=== PATIENT | male | born 1960 | race Caucasian/White ===

== ENCOUNTER 2016-08-10 12:36 | Inpatient (IN) ==
[2016-08-10 14:02] LABS: BUN/Creatinine Ratio 4 (6-26); Blood Urea Nitrogen 4 mg/dL (8-26); Calcium 9.9 mg/dL (8.6-10.8); Carbon Dioxide 21 mEq/L (19-29); Chloride 102 mEq/L (98-109); Glucose 101 mg/dL (70-99); Osmolality,Calculated 281 (280-300); Sodium 137 mEq/L (136-145); eGFR For African Americans > 60 (> 60); eGFR For Non-African Americans > 60 (> 60)
[2016-08-10] MEDS ORDERED: *HR* LORazepam 2 MG/ML VIAL ONE (14:05)
[2016-08-10] MEDS ORDERED: PHENYTOIN IVPB ONE ×2 (14:42→21:45)
--- NOTE | 2016-08-10 14:46 | Emergency Department Note ---
Disposition Clinical Impression: Generalized seizure Alcohol dependence Qualifiers: Substance use status: in withdrawal Complication of substance-induced condition : with unspecified complication Qualified Code(s): F10.239 - Alcohol dependence with withdrawal, unspecified Disposition: Admitted As Inpatient Condition: Fair Time of Disposition: 15:27 Seizure HPI - General Chief Complaint: ED Seizure Stated Complaint: seizure Time Seen by Provider: 08/10/16 12:48 Source: EMS Limitations: no limitations Nursing Notes Reviewed: Yes Vital Signs Reviewed: Yes - History of Present Illness HPI Narrative: Patient is a 55-year-old male who presents to [facility] ED via EMS status post seizure. States he had a seizure while standing up and fell backwards and hit the back of his head. He did lose consciousness for a few minutes and then was postictal afterwards. Patient was awake and alert upon his arrival and able to answer my questions. Patient states he is supposed to be on Dilantin but takes it here and there. States it does not make slow with his alcohol intake so he does not take it when he drinks. Patient states he drinks more days than not. Patient does have signs of a head laceration. States his only pain at this time is in his lower back where he has chronic pain. Pt Subjective Complaint: seizure Onset (ago): [employer] Description of Episode: loss of consciousness, tonic-clonic movement, post- event confusion -: minutes(s) Witnessed: yes - by bystander Associated trauma secondary to event: Yes (head laceration) Seizure History: known seizure disorder, history of non-compliance with treatment Possible Precipitating Event: alcohol withdrawal, other (medical noncompliance) Associated symptoms: Denies: chest pain, cough, fever/chills, loss of appetite, rash, shortness of breath, weakness Treatments prior to arrival: none - Related Data Home Medications Medication Instructions Recorded Confirmed Phenytoin [Dilantin] 400 mg PO BID 02/16/15 08/10/16 Ammonium Lactate [Destini-Hydrolac] 1 appl TP BID PRN 08/10/16 08/10/16 Brimonidine 0.2% [Alphagan] 1 drop RIGHT EYE BID 08/10/16 08/10/16 Ibuprofen [Motrin] 600 mg PO TID 08/10/16 08/10/16 Multivitamin [Multi-Day Vitamins] 1 each PO DAILY 08/10/16 08/10/16 Trazodone HCl 100 mg PO HS 08/10/16 08/10/16 Allergies Allergy/AdvReac Type Severity Reaction Status Date / Time No Known Allergies Allergy Verified 02/16/15 16:03 All systems ED: reviewed and negative except as stated. Past Medical History - Past Medical History Attestation: Yes The following information was validated with the patient. Source: patient Medical history: Reports: seizures Psychiatric history: Reports: no psych history - Social History Smoking Status: Current every day smoker Alcohol use: Reports: heavy, recent Drug use: Reports: none Physical Exam - General Limitations: no limitations General appearance: alert, in no apparent distress - Head Head exam: normocephalic, normal inspection, other (1.5 inch laceration over posterior scalp) - Eye Eye exam: Present: normal appearance, PERRL, EOMI - ENT ENT exam: normal exam, normal oropharynx, mucous membranes moist - Neck Neck exam: Present: normal inspection, full ROM, trachea midline - Chest Chest inspection: Present: normal inspection, symmetric chest wall rise - Respiratory Respiratory exam: Present: normal lung sounds bilaterally - Cardiovascular Cardiovascular exam: Present: normal rhythm, tachycardia - Abdominal Exam Abdominal exam: Present: soft, Non-Tender. Absent: tenderness, distention, guarding, rebound, rigidity - Extremities Exam Extremities exam: Present: normal inspection, full ROM. Absent: tenderness, pedal edema - Back Exam Back exam: Present: normal inspection, full ROM. Absent: tenderness - Neurological Exam Neurological exam: Present: alert - Psychiatric Psychiatric exam: Present: normal affect, normal mood - Skin Skin exam: Present: warm, dry, intact, normal color Course Course Narrative: Patient seen and examined. Seizure prior to arrival with head injury and LOC. CT head and cervical spine ordered. BMP, Dilantin level, UDS, glucose levels, ETOH ordered. - Reevaluation(s) Reevaluation #1: Patient had another tonic-clonic seizure which lasted approximately 1 minute before he received Ativan. His oxygen saturation desaturated down to 65% with foaming at his mouth. This then improved back to 92%. Concern for delirium tremens versus seizure disorder. We will admit to hospitalist service for further observation and continued treatment. Time: 14:53 Reevaluation #2: I spoke with hospitalist Silke Robles who has accepted patient for admission. I also spoke with neurologist Dr. Law who will see the patient in consult tomorrow. Agrees with loading with Dilantin. He has no further recommendations at this time. Patient is now awake and able to cooperate with exam. Cervical spine was cleared. CT head and cervical spine were both negative. Patient's scalp laceration was irrigated with normal saline and stapled. Time: 15:25 Vital Signs Temperature 97.8 F 08/10/16 12:39 Pulse Rate 116 08/10/16 12:39 Respiratory Rate 18 08/10/16 12:39 Blood Pressure 179/99 08/10/16 12:39 O2 Sat by Pulse Oximetry 93 08/10/16 12:39 Temperature 97.8 F 08/10/16 12:39 Pulse Rate 98 08/10/16 15:47 Respiratory Rate 16 08/10/16 16:08 Blood Pressure 118/71 08/10/16 16:08 O2 Sat by Pulse Oximetry 93 08/10/16 15:47 Oxygen Delivery Oxygen Delivery Nasal Cannula Procedures - Laceration Laceration 1 Site: scalp Size (cm): 2 Description: linear Depth: simple, single layer Pre-repair: wound explored, irrigated extensively, deep structures intact Skin layer closed with: german Number of sutures/german: 6 Seizure - Medical Records Medical records reviewed: Yes I reviewed the patient's medical records. - Lab Data Lab results reviewed: Yes I reviewed the patient's lab results. Result diagrams: 08/10/16 13:31 Lab Results 08/10/16 08/10/16 08/10/16 Range/Units 13:31 13:31 13:31 Sodium 137 (136-145) mEq/L Potassium 4.0 (3.5-4.5) mEq/L Chloride 102 (98-109) mEq/L Carbon Dioxide 21 (19-29) mEq/L BUN 4 L (8-26) mg/dL Creatinine 0.94 (0.72-1.25) mg/dL Est GFR ( Amer) > 60 (> 60) Est GFR (Non-Af Amer) > 60 (> 60) BUN/Creatinine Ratio 4 L (6-26) Glucose 101 H (70-99) mg/dL Calculated Osmolality 281 (280-300) Calcium 9.9 (8.6-10.8) mg/dL Urine Color (Yellow) Urine Clarity (Clear) Urine pH (5.0-8.0) pH Units Ur Specific Felt (1.010-1.025) Urine Protein (Neg-Trace) mg/dL Urine Glucose (UA) (Normal) mg/dL Urine Ketones (Negative) mg/dL Urine Blood (Negative) Urine Nitrite (Negative) Urine Bilirubin (Negative) Urine Urobilinogen (Normal) mg/dL Ur Leukocyte Esterase (Negative) Urine Microscopic RBC (0-3) per hpf Urine Microscopic WBC (0-3) per hpf Ur Squamous Epith Cells (None-Few) per lpf Amorphous Sediment (Few) Urine Bacteria (None-Few) per hpf Urine Opiates Screen (Cnhbyp=918) ng/mL Ur Barbiturates Screen (Ejtpqg=282) ng/mL Phenytoin < 0.5 L (10-20) mcg/mL Ur Phencyclidine Scrn (Cutoff=25) ng/mL Ur Amphetamines Screen (Ukassi=7036) ng/mL U Benzodiazepines Scrn (Jvrick=334) ng/mL Urine Cocaine Screen (Cutoff= 300) ng/mL U Marijuana (THC) Screen (Cutoff = 50) ng/mL Ethyl Alcohol < 10 (0-10) mg/dL 08/10/16 08/10/16 Range/Units 14:31 14:34 Sodium (136-145) mEq/L Potassium (3.5-4.5) mEq/L Chloride (98-109) mEq/L Carbon Dioxide (19-29) mEq/L BUN (8-26) mg/dL Creatinine (0.72-1.25) mg/dL Est GFR ( Amer) (> 60) Est GFR (Non-Af Amer) (> 60) BUN/Creatinine Ratio (6-26) Glucose (70-99) mg/dL Calculated Osmolality (280-300) Calcium (8.6-10.8) mg/dL Urine Color Yellow (Yellow) Urine Clarity Clear (Clear) Urine pH 5.5 (5.0-8.0) pH Units Ur Specific Felt 1.025 (1.010-1.025) Urine Protein 30 H (Neg-Trace) mg/dL Urine Glucose (UA) Normal (Normal) mg/dL Urine Ketones Trace H (Negative) mg/dL Urine Blood Moderate H (Negative) Urine Nitrite Negative (Negative) Urine Bilirubin Negative (Negative) Urine Urobilinogen Normal (Normal) mg/dL Ur Leukocyte Esterase Negative (Negative) Urine Microscopic RBC 0-3 (0-3) per hpf Urine Microscopic WBC 0-3 (0-3) per hpf Ur Squamous Epith Cells Few (None-Few) per lpf Amorphous Sediment Few (Few) Urine Bacteria Few (None-Few) per hpf Urine Opiates Screen Negative (Izzkes=538) ng/mL Ur Barbiturates Screen Negative (Hrqepo=774) ng/mL Phenytoin (10-20) mcg/mL Ur Phencyclidine Scrn Negative (Cutoff=25) ng/mL Ur Amphetamines Screen Negative (Ooartr=5995) ng/mL U Benzodiazepines Scrn Negative (Cloahn=860) ng/mL Urine Cocaine Screen Negative (Cutoff= 300) ng/mL U Marijuana (THC) Screen Negative (Cutoff = 50) ng/mL Ethyl Alcohol (0-10) mg/dL - Radiology Data Radiology results reviewed: Yes I reviewed the patient's radiology results. Head CT 08/10/16 12:49 IMPRESSION: No acute intracranial abnormality. D/ / Clark Daniels MD / Clark Daniels MD Interpreting Provider: Clark Daniels MD Cervical Spine CT 08/10/16 12:50 IMPRESSION: 1. No evidence of cervical spine fracture or listhesis. D/ / 08/10/2016 15:08:05 Doug Vargas MD / Estefani Timmons Interpreting Provider: Dogu Vargas MD Attestation Statement - Attestation Attestation: I,Waqar Nguyễn, examined this patient and my medical decision-making was reviewed with the RN WELLNESS/PA/Advanced Practice Nurse/Resident Physician. I agree with the documented findings, disposition and treatment plan as described except to the extent set forth below. 55-year-old male presents after a seizure. 5-year-old male presents after a witnessed seizure. Patient was standing at the bank when he told Telly felt like he was going to have a seizure, he then fell backwards hitting his head on the ground. Patient had about 2 minutes of convulsions per bystanders. Patient has a history of seizures and is supposed be taking Dilantin however he states he does not take it every day he Has a interferes with his drinking of alcohol. Patient does state that he drinks alcohol daily however it is unknown whether he has a history of alcohol withdrawal seizures or when he had his last drink. Patient is tachycardic he is postictal on arrival. Patient does not have any focal neurologic deficits. Patient given Ativan in the emergency department for a repeat seizure. According to nursing staff he did return to baseline prior to having repeat seizure. Patient will be admitted to the hospital for further care and evaluation of seizures and possible EtOH withdrawal.
[2016-08-10 14:47] LABS: Bilirubin,Urine Negative (Negative); Blood,Urine Moderate (Negative); Clarity,Urine Clear (Clear); Color,Urine Yellow (Yellow); Glucose,Urine (UA) Normal (Normal); Ketones,Urine Trace mg/dL (Negative); Leukocyte Esterase,Urine Negative (Negative); Nitrite,Urine Negative (Negative); PH,Urine 5.5 pH Units (5.0-8.0); Protein,Urine 30 mg/dL (Neg-Trace); Specific Gravity,Urine 1.025 (1.010-1.025); Urobilinogen,Urine Normal (Normal)
[2016-08-10 14:53] LABS: Amphetamine Screen,Urine Negative ng/mL (Cutoff=1000); Barbiturate Screen,Urine Negative ng/mL (Cutoff=200); Benzodiazepines Screen,Urine Negative ng/mL (Cutoff=200); Cannabinoid Screen,Urine Negative ng/mL (Cutoff = 50); Cocaine Screen,Urine Negative ng/mL (Cutoff= 300); Opiate Screen,Urine Negative ng/mL (Cutoff=300); Phencyclidine Screen,Urine Negative ng/mL (Cutoff=25)
[2016-08-10 15:00] LABS: Squamous Epithelial Cell,Urine Few per lpf (None-Few)
[2016-08-10 15:02] LABS: Amorphous Sediment,Urine Few (Few); Bacteria,Urine Few per hpf (None-Few); RBC,Urine 0-3 per hpf (0-3); WBC,Urine 0-3 per hpf (0-3)
[2016-08-10] MEDS ORDERED: Naloxone 0.4 MG/ML INJ IVP PRN (16:22)
--- NOTE | 2016-08-10 16:41 | Internal Med History&Physical ---
<Silke Robles - Last Filed: 08/10/16 16:49> Date of Encounter: 08/10/16 Time of Encounter: 16:33 Assessment and Plan (1) Generalized seizure Current visit: Yes Status: Acute with seizure prior to arrival and tonic clonic activity in the ED. Has known hx seizure disorder but does not take Dilantin and hx etoh abuse as well. Dilantin level less than 0.5. Received one time dose IV Ativan and Dilantin load in the ED. Discussed with Dr. Law, add Dilantin 300mg PO daily, check dilantin level in the morning. Will need to be transferred for EMU monitoring if continues to have seizures (2) Alcohol dependence Current visit: Yes Status: Acute drinks daily. Last drink morning of admission. BAL negative. Monitor with CIWA Qualifiers: Substance use status: in withdrawal Complication of substance-induced condition: with unspecified complication Qualified Code(s): F10.239 - Alcohol dependence with withdrawal, unspecified (3) DVT prophylaxis Current visit: Yes Status: Acute [facility] Internal Medicine - H&P: HPI Chief complaint: seizure Admitted From: Home History of present illness: Mr. Platt is a 55 year old male with PMH seizure disorder and Etoh abuse who presented to [facility] on 08/10/2016 after having a seizure and falling. He had another witnessed seizure in the ED and was admitted for continued monitoring and Neurological evaluation. Information obtained mostly from chart review as patient is drowsy from IV ativan. He does tell me that he has not been taking his Dilantin. Says its on his microwave at home. Last seizure was yesterday. He does endorse having seizures at times if he doesn't drink alcohol. He is drowsy on exam and does not elaborate. He does not answer ROS Past Med Surg Social Fam HX - Past Medical History Medical history: seizures Psychiatric history: no psych history - Past Surgical History Surgical History: non-contributory (Unable to obtain due to mentation, no family at bedside ) - Social History Smoking Status: Current every day smoker Alcohol use: heavy, recent Drug use: none - Additional Family History Additional family history: unable to obtain due to mentation. No family at bedside Internal Medicine - H&P: Meds Phenytoin [Dilantin] 400 mg PO BID 02/16/15 [History] Ammonium Lactate [Destini-Hydrolac] 1 appl TP BID PRN 08/10/16 [History] Brimonidine 0.2% [Alphagan] 1 drop RIGHT EYE BID 08/10/16 [History] Ibuprofen [Motrin] 600 mg PO TID 08/10/16 [History] Multivitamin [Multi-Day Vitamins] 1 each PO DAILY 08/10/16 [History] Trazodone HCl 100 mg PO HS 08/10/16 [History] Allergies No Known Allergies Allergy (Verified 02/16/15 16:03) ROS unobtainable: due to mental status All Systems PM: A 10-system review of systems was performed and is negative for pertinent findings except as documented above in the HPI. - Constitutional Vitals: Temp Pulse Resp BP Pulse Ox 97.8 F 98 16 118/71 93 08/10/16 12:39 08/10/16 15:47 08/10/16 16:08 08/10/16 16:08 08/10/16 15:47 General appearance: Present: disheveled, A&O X 2 - Head Head exam: Present: atraumatic, normocephalic - Expanded Head Exam Head exam expanded: Present: laceration - Eye Eye exam: Present: PERRL, conjuntiva pink, sclera anicteric Pupils: Present: PERRL - Neck Neck exam general surgery: Present: supple, trachea midline. Absent: lymphadenopathy - Respiratory Respiratory exam: Present: CTAB. Absent: accessory muscle use, rales, rhonchi, wheezes - Cardiovascular Cardiovascular exam: Present: RRR, +S1, +S2. Absent: diastolic murmur, gallop, rubs, systolic murmur - GI/Abdominal GI/Abdominal exam: Present: normal bowel sounds, soft, no peritoneal signs. Absent: distended, tenderness - Extremities Exam Extremities exam: Present: warm, radial pulses palpable and symetrical. Absent : calf tenderness, cyanotic, pedal edema - Neurological Exam Neurological exam: Present: CN II-XII intact, no focal deficits. Absent: pronater drift, facial droop, speech deficit - Expanded Neurological Exam Speech: Present: slurred Coma Scale Eye Opening: Spontaneous Coma Scale Motor Response: Obeys Commands Coma Scale Verbal Response: Oriented Coma Scale Total: 15 - Skin Skin exam: Present: dry, intact Additional comments: scattered dry patches to bilateral lower extremities Internal Med - H&P Results - Labs CBC & Chem 7: 08/10/16 13:31 <Mackenzie Tanner E - Last Filed: 08/11/16 08:39> Date of Encounter: 08/11/16 Internal Medicine - H&P: HPI History of present illness: Mr. Platt is a 55 year old male Past Med Surg Social Fam HX - Family History Father Twin of Family Member: Yes, Fraternal Living Status: Age at : 40 Cause of : heart attack All Systems PM: A 10-system review of systems was performed and is negative for pertinent findings except as documented above in the HPI. - Constitutional Vitals: Temp Pulse Resp BP Pulse Ox 98.6 F 103 16 139/95 94 08/11/16 07:29 08/11/16 07:29 08/11/16 07:29 08/11/16 07:29 08/11/16 07:29 Internal Med - H&P Results - Labs CBC & Chem 7: 08/11/16 03:35 08/11/16 03:35 Labs: Short CBC 08/11/16 Range/Units 03:35 WBC 10.1 (4.3-11.1) K/mcL Hgb 17.6 H (12.9-16.9) g/dL Hct 52.4 H (37.5-50.1) % Plt Count 199 (140-400) K/mcL Neutrophils # 7.7 (1.6-8.9) K/mcL BMP 08/11/16 03:35 Sodium 140 Potassium 3.8 Chloride 107 Carbon Dioxide 20 BUN 5 L Creatinine 0.91 Glucose 112 H Calcium 9.1 Liver Function 08/11/16 Range/Units 03:35 Total Bilirubin 1.3 H (0.2-1.2) mg/dL AST 85 H (5-34) Units/L ALT 65 H (0-55) Units/L Alkaline Phosphatase 98 (38-126) Units/L Albumin 3.5 (3.5-5.0) g/dL - Attending Attestation This is a late entry for a patient I examined and reviewed laboratory, imaging and all diagnostic data on 08/10/16. My medical decision-making was reviewed with Silke Robles - CANDICE. I agree with the documented findings, disposition and treatment plan as described above. History and exam by me shows: had seizure at home and then another episode in ED. Now in post-ictal state. tremors. concern for withdrawal. Stat IV ativa. TARAS protocol. sitter. received loading dose of dilantin.
[2016-08-10] MEDS ORDERED: *HR* LORazepam 2 MG/ML VIAL IVP ONE (16:56)
[2016-08-10] MEDS: 0.9 % Sodium Chloride 1,000 ML IVC SCH (18:41)
[2016-08-10] MEDS ORDERED: *HR* LORazepam 2 MG/ML VIAL IVP PRN (18:52)
[2016-08-11 04:51] LABS: Basophils # 0.1 K/mcL (0.0-0.2); Basophils % 0.8 %; Eosinophils % 0.3 %; Hematocrit 52.4 % (37.5-50.1); Hemoglobin 17.6 g/dL (12.9-16.9); Immature Granulocytes % 1.2 % (0-4); Lymphocytes # 0.9 K/mcL (0.6-4.6); Lymphocytes % 9.2 %; Mean Corpuscular HGB Conc 33.6 g/dL (31.6-35.5); Mean Corpuscular Hemoglobin 30.9 pg (28.0-33.3); Mean Corpuscular Volume 92.1 fL (83.0-100.0); Mean Platelet Volume 10.9 fL (9.4-12.4); Monocytes # 1.3 K/mcL (0.0-1.3); Monocytes % 13.1 %; Neutrophils # 7.7 K/mcL (1.6-8.9); Platelet Count 199 K/mcL (140-400); Red Blood Count 5.69 M/mcL (4.19-5.50); Red Cell Distribution Width 13.4 % (11.5-14.5); Segmented Neutrophils % 75.4 %
[2016-08-11 05:14] LABS: Alanine Aminotransferase 65 Units/L (0-55); Albumin 3.5 g/dL (3.5-5.0); Albumin/Globulin Ratio 0.9 (1.1-2.2); Alkaline Phosphatase 98 Units/L (38-126); BUN/Creatinine Ratio 5 (6-26); Bilirubin,Total 1.3 mg/dL (0.2-1.2); Calcium 9.1 mg/dL (8.6-10.8); Carbon Dioxide 20 mEq/L (19-29); Chloride 107 mEq/L (98-109); Globulin 3.7 g/dL (2.4-3.5); Glucose 112 mg/dL (70-99); Osmolality,Calculated 288 (280-300); Sodium 140 mEq/L (136-145); Total Protein 7.2 g/dL (6.0-8.3); eGFR For African Americans > 60 (> 60); eGFR For Non-African Americans > 60 (> 60)
[2016-08-11] MEDS: Nicotine 21 MG PATCH.TD24 TD SCH ×2 (05:17→09:59)
[2016-08-11 05:23] LABS: Phenytoin (Dilantin) 18.1 mcg/mL (10-20)
[2016-08-11 05:31] LABS: Aspartate Amino Transferase 85 Units/L (5-34); Blood Urea Nitrogen 5 mg/dL (8-26)
[2016-08-11 05:32] LABS: Potassium 3.8 mEq/L (3.5-4.5)
[2016-08-11] MEDS ORDERED: *HR* Enoxaparin 40 MG/0.4 ML SYRINGE SQ SCH (06:00)
--- NOTE | 2016-08-11 08:57 | Internal Med Progress Note ---
Date of Encounter: 08/11/16 Time of Encounter: 08:57 - Constitutional Vitals: Temp Pulse Resp BP Pulse Ox 98.6 F 103 16 139/95 94 08/11/16 07:29 08/11/16 07:29 08/11/16 07:29 08/11/16 07:29 08/11/16 07:29 General appearance: Present: disheveled, A&O X 2 Internal Medicine: Result - Labs CBC & Chem 7: 08/11/16 03:35 08/11/16 03:35 Labs: Short CBC 08/11/16 Range/Units 03:35 WBC 10.1 (4.3-11.1) K/mcL Hgb 17.6 H (12.9-16.9) g/dL Hct 52.4 H (37.5-50.1) % Plt Count 199 (140-400) K/mcL Neutrophils # 7.7 (1.6-8.9) K/mcL BMP 08/11/16 03:35 Sodium 140 Potassium 3.8 Chloride 107 Carbon Dioxide 20 BUN 5 L Creatinine 0.91 Glucose 112 H Calcium 9.1 Liver Function 08/11/16 Range/Units 03:35 Total Bilirubin 1.3 H (0.2-1.2) mg/dL AST 85 H (5-34) Units/L ALT 65 H (0-55) Units/L Alkaline Phosphatase 98 (38-126) Units/L Albumin 3.5 (3.5-5.0) g/dL Consult Discharge Plan - Plan [facility]errals: [facility] [Primary Care Provider] -
[2016-08-11] MEDS ORDERED: Thiamine (B-1) 100 MG TABLET PO SCH (09:00)
[2016-08-11] MEDS: 0.9 % Sodium Chloride 1,000 ML IVC SCH (10:00)
[2016-08-11 11:41] VITALS: BP 113/89
--- NOTE | 2016-08-11 15:47 | Discharge Summary ---
<Yovani Stone - Last Filed: 08/11/16 15:59> Date of Encounter: 08/11/16 Time of Encounter: 15:45 - Discharge Diagnosis (1) Generalized seizure Priority: Primary Status: Acute (2) Alcohol dependence Priority: Secondary Status: Acute Qualifiers: Substance use status: in withdrawal Complication of substance-induced condition: with unspecified complication Qualified Code(s): F10.239 - Alcohol dependence with withdrawal, unspecified (3) DVT prophylaxis Priority: Secondary Status: Acute - Discharge Medications Prescriptions: LevETIRAcetam [Keppra] 500 mg PO BID #60 tablet Thiamine (B-1) [Vitamin B-1] 100 mg PO DAILY #30 tablet Home Medications: Ammonium Lactate [Destini-Hydrolac] 1 appl TP BID PRN 08/10/16 [History] Brimonidine 0.2% [Alphagan] 1 drop RIGHT EYE BID 08/10/16 [History] Ibuprofen [Motrin] 600 mg PO TID 08/10/16 [History] Multivitamin [Multi-Day Vitamins] 1 each PO DAILY 08/10/16 [History] Trazodone HCl 100 mg PO HS 08/10/16 [History] LevETIRAcetam [Keppra] 500 mg PO BID #60 tablet 08/11/16 [Rx] Thiamine (B-1) [Vitamin B-1] 100 mg PO DAILY #30 tablet 08/11/16 [Rx] Allergies/Adverse Reactions: Allergies No Known Allergies Allergy (Verified 02/16/15 16:03) Date of admission: 08/10/16 16:22 Primary care physician: [facility] Consults: 08/10/16 20:20 Consult to Speech Therapy [CONS] Routine Comment: Evaluate, develop and implement POC Reason for Consult: failed bedside dysphagia screening Call Completed: No 08/11/16 08:56 Consult to Physical Therapy [CONS] Routine Comment: Evaluate, develop and implement POC Reason for Consult: weakness OT [Consult to Occupational Therapy] [CONS] Routine Comment: Evaluate, develop and implement POC Reason for Consult: weakness Discharging clinician: Yovani Stone Anticipated date of discharge: 08/11/16 - Patient Status Disposition: Home, Self-Care Condition: Fair Functional capacity at discharge: uses cane/walker (up with assistance, fall precaution) Overall status at discharge: patient is progressing back to baseline - Discharge Instructions Instructions: Levetiracetam (By mouth) Follow Up With: [facility] [Primary Care Provider] - (F/u in a week for seizure and alcohol abuse) - Diet and Activity Activity: resume usual activities as tolerated Diet: low fat, low cholesterol Hospital course: Mr. Platt is a 55 year old male with hx of seizure and alcohol abuse, who presented to the ER for seizure, he had another seizure episode in the ER witnessed, admitted for same issue, he was put on CIWA protocol for alcohol abuse and dilantin level was low in the initial lab in the ER, he received dilantin in the ER, the level became normal next day, neuro consulted, recommended switching to keppra, no more seizure activity in the hospital stay, no alcohol withdraw therefore he will be d/c to home in stable condition with keppra prescription, close f/u with his PCP, PT/OT recommended rehab but he refused to go and instructed him for fall risk, pt showed understandings. - Time Spent with Patient Total time spent providing and/or coordinating discharge services: - Constitutional Vitals: Temp Pulse Resp BP Pulse Ox 97.9 F 103 20 113/89 93 08/11/16 11:35 08/11/16 11:35 08/11/16 11:35 08/11/16 11:35 08/11/16 11:35 General appearance: Present: cooperative, A&O X 3, no acute distress, answers questions appropriately - Respiratory Respiratory exam: Present: CTAB. Absent: rales, rhonchi, wheezes - Cardiovascular Cardiovascular exam: Present: RRR, +S1, +S2. Absent: clicks, gallop, rubs, systolic murmur - GI/Abdominal GI/Abdominal exam: Present: normal bowel sounds, soft. Absent: distended, firm , guarding, rebound, rigid, tenderness - Extremities Exam Extremities exam: Present: warm, radial pulses palpable and symetrical. Absent : calf tenderness, pedal edema, tenderness <Juan David - Last Filed: 08/11/16 17:42> Date of Encounter: 08/11/16 - Discharge Diagnosis (1) Grand mal seizure Priority: Primary Status: Acute (2) Alcohol dependence Status: Chronic Qualifiers: Substance use status: in withdrawal Complication of substance-induced condition: uncomplicated Qualified Code(s): F10.230 - Alcohol dependence with withdrawal, uncomplicated (3) Tobacco abuse Priority: Secondary Status: Chronic (4) Unsteady gait Priority: Secondary Status: Chronic Date of admission: 08/10/16 16:22 Primary care physician: [facility] Consults: 08/10/16 20:20 Consult to Speech Therapy [CONS] Routine Comment: Evaluate, develop and implement POC Reason for Consult: failed bedside dysphagia screening Call Completed: No 08/11/16 08:56 Consult to Physical Therapy [CONS] Routine Comment: Evaluate, develop and implement POC Reason for Consult: weakness OT [Consult to Occupational Therapy] [CONS] Routine Comment: Evaluate, develop and implement POC Reason for Consult: weakness Hospital course: Mr. Platt is a 55 year old male - Time Spent with Patient Total time spent providing and/or coordinating discharge services: 35min - Constitutional Vitals: Temp Pulse Resp BP Pulse Ox 97.9 F 103 20 113/89 93 08/11/16 11:35 08/11/16 11:35 08/11/16 11:35 08/11/16 11:35 08/11/16 11:35 - Attending Attestation I examined this patient and my medical decision-making was reviewed with the Resident Physician on 08/11/16. I agree with the documented findings, disposition and treatment plan as described except to the extent set forth below. Mr. Platt has had no further seizure at this time. He is very unsteady on his feet and has been recommended to go to rehab but he has refused. He is alert and oriented and he can make his own decisions. He has been changed to Keppra. He is afebrile at this time. Exam Unsteady with ambulation Heart not tachy No wheeze Plan D/C home today. Pt refuses rehab or [facility] Keppra Advised to seek help for alcoholism as well.
--- NOTE | 2016-08-11 15:52 | Neurology Progress Note ---
Date of Encounter: 08/11/16 Time of Encounter: 15:47 Assessment and Plan (1) Generalized seizure Current Visit: Yes Status: Acute Known history of seizure disorder, likely secondary to a combination of alcoholism plus non-compliance with antiepileptic therapy. Patient continues to drink alcohol on daily basis and he fears taking medication while drinking therefore i recommended keppra instead of dilantin which is metabolized through the kidney instead of liver. There would be less interaction with alcohol from the use of dilantin. Will discontinue dilantin and switch to keppra 500mg bid. Continue vitamin supplementation. Subjective Principal diagnosis: recurrent seizure Interval history: 55 year old with PMH significant for alocholism, and seizure disorder who was brought in due to witnessed seizure. Patient has known history of seizure, likely complicated by alcohlism and non-compliance with dilantin. He states that he has been having seizures since 2003. Has been taking dilantin for seizures but he has not been compliant with taking the medicine and at times he does not take medication when drinking alcohol. He has about 4-5 seizure per year by average. He does not usually have two seizures in a month but this month he did. CT of head showed no acute intracranial abnormality. Currently patient denies significant discomforts. Objective - Constitutional Vitals: Temp Pulse Resp BP Pulse Ox 97.9 F 103 20 113/89 93 08/11/16 11:35 08/11/16 11:35 08/11/16 11:35 08/11/16 11:35 08/11/16 11:35 - Neurological Exam Sensorimotor examination: Present: intact (d) Motor Examination: Present: grossly full strength in all extremities Sensation intact: Present: intact Posture: Present: other (None) Reflex and gait examination: intact Reflexes: Biceps: 1+, Triceps: 1+, Brachioradialis: 1+, Patella: 1+, Achilles: 1 + Mental Status Examination: Present: awake, alert, oriented to person, oriented to place, oriented to time, follows commands appropriately, answers questions appropriately, no agnosia, no aphasia, no aproxia Cranial nerve examination: Present: PERRL, EOMI, visual orozco intact, corneal reflexes brisk symmetrically, sensory to face intact, mastication intact, no facial asymmetry is present, no dysarthria, hearing is intact symmetrically, soft palate elevates bilaterally upon phonation, gag reflex intact, flexes SCM and trapezius muscles symmetrically with full power, tongue protrudes midline Results - Laboratory Findings CBC and BMP: 08/11/16 03:35 08/11/16 03:35 Abnormal lab findings: Abnormal lab results RBC 5.69 M/mcL (4.19-5.50) H 08/11/16 03:35 Hgb 17.6 g/dL (12.9-16.9) H 08/11/16 03:35 Hct 52.4 % (37.5-50.1) H 08/11/16 03:35 BUN 5 mg/dL (8-26) L 08/11/16 03:35 BUN/Creatinine Ratio 5 (6-26) L 08/11/16 03:35 Glucose 112 mg/dL (70-99) H 08/11/16 03:35 POC Glucose 131 (58-89) H 08/11/16 08:53 Total Bilirubin 1.3 mg/dL (0.2-1.2) H 08/11/16 03:35 AST 85 Units/L (5-34) H 08/11/16 03:35 ALT 65 Units/L (0-55) H 08/11/16 03:35 Creatine Kinase 570 Units/L (30-200) H 08/10/16 16:49 Globulin 3.7 g/dL (2.4-3.5) H 08/11/16 03:35 Albumin/Globulin Ratio 0.9 (1.1-2.2) L 08/11/16 03:35 Urine Protein 30 mg/dL (Neg-Trace) H 08/10/16 14:31 Urine Ketones Trace mg/dL (Negative) H 08/10/16 14:31 Urine Blood Moderate (Negative) H 08/10/16 14:31 Consult Discharge Plan - Plan [facility]: [facility] Care Provider[facility] - Prescriptions: LevETIRAcetam [Keppra] 500 mg PO BID #60 tablet
== END 2016-08-11 16:58 | disposition home or self-care (01) | DRG 41 ==
LOC: EMEROO 12:36 → 2NENU 12:36
PROVIDERS: ADMIT Registered Nurse; ATTEND Internal Medicine

== ENCOUNTER 2020-09-04 09:48 | Inpatient (IN) ==
[2020-09-04] MEDS ORDERED: Isovue-370 500 ML BOTTLE IVP ONE (09:56)
[2020-09-04 10:38] LABS: Basophils # 0.1 K/mcL (0.0-0.2); Basophils % 0.6 %; Eosinophils # 0.1 K/mcL (0.0-0.6); Eosinophils % 0.5 %; Hematocrit 29.3 % (37.5-50.1); Hemoglobin 9.9 g/dL (12.9-16.9); Lymphocytes # 0.4 K/mcL (0.6-4.6); Lymphocytes % 3.6 %; Mean Corpuscular HGB Conc 33.8 g/dL (31.6-35.5); Mean Corpuscular Hemoglobin 30.9 pg (28.0-33.3); Mean Corpuscular Volume 91.6 fL (83.0-100.0); Mean Platelet Volume 9.8 fL (9.4-12.4); Monocytes # 1.4 K/mcL (0.0-1.3); Monocytes % 12.1 %; Neutrophils # 9.4 K/mcL (1.6-8.9); Platelet Count 104 K/mcL (140-400); Red Cell Distribution Width 18.8 % (11.5-14.5); Segmented Neutrophils % 79.2 %; White Blood Count 11.9 K/mcL (4.3-11.1)
[2020-09-04 11:05] LABS: Alanine Aminotransferase 33 Units/L (7-52); Albumin/Globulin Ratio 0.8 (1.1-2.2); Alkaline Phosphatase 168 Units/L (34-104); Aspartate Amino Transferase 110 Units/L (13-39); BUN/Creatinine Ratio 18 (6-26); Bilirubin,Indirect 5.4 mg/dL (0.0-1.0); Bilirubin,Total 9.4 mg/dL (0.3-1.0); Blood Urea Nitrogen 13 mg/dL (6-20); C-Reactive Protein 16 mg/L (Less than 10); Calcium 8.7 mg/dL (8.6-10.3); Carbon Dioxide 21 mEq/L (23-29); Chloride 88 mEq/L (98-107); Globulin 3.8 g/dL (2.4-3.5); Glucose 101 mg/dL (70-105); Magnesium 1.7 mg/dL (1.6-2.6); Osmolality,Calculated 248 (280-300); Phosphorous 2.8 mg/dL (2.7-4.5); Potassium 4.9 mEq/L (3.5-5.1); Sodium 119 mEq/L (136-145); Total Protein 6.8 g/dL (6.4-8.9); Troponin I < 0.03 ng/mL (< 0.04); eGFR For African Americans > 60 (> 60); eGFR For Non-African Americans > 60 (> 60)
[2020-09-04 11:21] LABS: INR 1.4; Prothrombin Time 15.8 Seconds (9.4-12.1)
[2020-09-04] MEDS ORDERED: Vancomycin 1,500 MG/265 ML IV.SOLN IVPB ONE (11:21)
[2020-09-04] MEDS ORDERED: 0.9 % Sodium Chloride 1,000 ML IVC ONE (11:21)
[2020-09-04] MEDS ORDERED: Piperacillin/Tazobactam 3.375 GM in 0.9 % Sodium Chloride Mini Bag 100 ML IVPB ONE (11:21)
[2020-09-04 11:23] LABS: Activated Partial Thrombo Time 33.7 Seconds (26.0-36.0)
[2020-09-04] MEDS ORDERED: Naloxone 0.4 MG/ML INJ IVP PRN (12:06)
[2020-09-04] MEDS ORDERED: Ondansetron ODT 4 MG TAB.RAPDIS SL PRN (12:06)
[2020-09-04] MEDS ORDERED: *HR* LORazepam 2 MG/ML VIAL IVP PRN ×3 (12:11)
[2020-09-04] MEDS ORDERED: cefTRIAXone 2,000 MG in Water for inj. (sterile) 20 ML IVP SCH (13:00)
[2020-09-04 13:12] LABS: Bilirubin,Urine Small (Negative); Blood,Urine Large (Negative); Clarity,Urine Clear (Clear); Color,Urine Dark-Yellow (Yellow); Glucose,Urine (UA) Normal (Normal); Ketones,Urine Negative (Negative); Leukocyte Esterase,Urine Negative (Negative); Mucus,Urine Few per lpf (None-Few); Nitrite,Urine Negative (Negative); Protein,Urine 30 mg/dL (Neg-Trace); Specific Gravity,Urine > 1.030 (1.010-1.025); Squamous Epithelial Cell,Urine Few per hpf (None-Few); Urobilinogen,Urine >=8.0 mg/dL (Normal)
[2020-09-04] MEDS ORDERED: Thiamine (B-1) 100 MG, Folic Acid 1 MG, MVI, adult with vitamin K 10 ML in 0.9 % Sodi... IVPB SCH (14:30)
[2020-09-04] MEDS: Lactulose Oral Soln 20 GM/30 ML UDC PO SCH ×2 (16:44→20:10)
[2020-09-04] MEDS: Cefepime HCl 2,000 MG in Water for inj. (sterile) 20 ML IVP SCH (17:05)
[2020-09-04] MEDS: Albumin 25% 25gram/100mL 25 GM/100 ML IV.SOLN IVC SCH ×4 (17:06→21:47)
[2020-09-04] MEDS: MetroNIDAZOLE 500 MG/100 ML 500 MG/100 ML BAG IVPB SCH (17:27)
[2020-09-04 18:34] LABS: RBC,Peritoneal Fluid < 2000 RBC/mcL
[2020-09-04] MEDS ORDERED: *HR* OxyCODONE Immed Rel 5 MG TABLET PO PRN (18:45)
[2020-09-04 19:37] LABS: Appearance of Peritoneal Fl CLEAR (Clear)
[2020-09-04 19:54] LABS: Basophils,Peritoneal Fluid 0 %; Eosinophils,Peritoneal Fluid 0 %
[2020-09-05] MEDS: Cefepime HCl 2,000 MG in Water for inj. (sterile) 20 ML IVP SCH ×3 (01:01→17:17)
[2020-09-05] MEDS: Vancomycin 1,250 MG/262.5 ML IV.SOLN IVPB SCH ×2 (01:12→13:47)
[2020-09-05] MEDS: MetroNIDAZOLE 500 MG/100 ML 500 MG/100 ML BAG IVPB SCH ×3 (01:13→17:18)
[2020-09-05 02:48] LABS: Alanine Aminotransferase 22 Units/L (7-52); Albumin 3.5 g/dL (3.5-5.7); Albumin/Globulin Ratio 1.2 (1.1-2.2); Alkaline Phosphatase 119 Units/L (34-104); Aspartate Amino Transferase 73 Units/L (13-39); BUN/Creatinine Ratio 16 (6-26); Bilirubin,Total 8.4 mg/dL (0.3-1.0); Blood Urea Nitrogen 12 mg/dL (6-20); Calcium 8.8 mg/dL (8.6-10.3); Carbon Dioxide 24 mEq/L (23-29); Chloride 96 mEq/L (98-107); Globulin 2.9 g/dL (2.4-3.5); Glucose 98 mg/dL (70-105); Magnesium 1.7 mg/dL (1.6-2.6); Osmolality,Calculated 268 (280-300); Phosphorous 2.8 mg/dL (2.7-4.5); Potassium 3.9 mEq/L (3.5-5.1); Sodium 129 mEq/L (136-145); Total Protein 6.4 g/dL (6.4-8.9); eGFR For African Americans > 60 (> 60); eGFR For Non-African Americans > 60 (> 60)
[2020-09-05 06:36] LABS: INR 1.7; Prothrombin Time 19.1 Seconds (9.4-12.1)
[2020-09-05] MEDS ORDERED: Thiamine (B-1) 200 MG in 0.9 % Sodium Chloride 50 ML IVPB SCH (09:00)
[2020-09-05] MEDS ORDERED: Folic Acid 1 MG in 0.9 % Sodium Chloride 50 ML IVPB SCH (09:00)
[2020-09-05] MEDS: Lactulose Oral Soln 20 GM/30 ML UDC PO SCH (09:55)
[2020-09-05 13:23] LABS: Mean Corpuscular HGB Conc 33.3 g/dL (31.6-35.5); Segmented Neutrophils % 77.2 %
[2020-09-05] MEDS ORDERED: Ipratropium/Albuterol Neb 3 ML IH PRN (13:24)
[2020-09-05 13:25] LABS: Basophils # 0.1 K/mcL (0.0-0.2); Basophils % 0.7 %; Eosinophils # 0.1 K/mcL (0.0-0.6); Eosinophils % 0.8 %; Hematocrit 22.8 % (37.5-50.1); Hemoglobin 7.6 g/dL (12.9-16.9); Immature Granulocytes % 3.2 % (0-4); Immature Platelets 3.4 % (1.1-6.1); Lymphocytes # 0.4 K/mcL (0.6-4.6); Lymphocytes % 4.7 %; Mean Corpuscular Hemoglobin 31.5 pg (28.0-33.3); Mean Corpuscular Volume 94.6 fL (83.0-100.0); Mean Platelet Volume 9.6 fL (9.4-12.4); Monocytes % 13.4 %; Neutrophils # 5.8 K/mcL (1.6-8.9); Red Blood Count 2.41 M/mcL (4.19-5.50); Red Cell Distribution Width 19.7 % (11.5-14.5); White Blood Count 7.5 K/mcL (4.3-11.1)
[2020-09-05 13:27] LABS: Platelet Count 90 K/mcL (140-400)
[2020-09-05 16:12] VITALS: BP 109/54
[2020-09-05 18:15] LABS: Hemoglobin 7.7 g/dL (12.9-16.9)
[2020-09-05] MEDS ORDERED: Spironolactone 25 MG TABLET PO SCH (21:00)
[2020-09-05] MEDS ORDERED: Latanoprost 2.5 ML BOTTLE RIGHT EYE SCH (21:00)
[2020-09-05] MEDS ORDERED: traZODone 50 MG TABLET PO SCH (21:00)
[2020-09-05] MEDS ORDERED: levETIRAcetam 250 MG TABLET PO SCH (21:00)
[2020-09-06] MEDS ORDERED: Levothyroxine 25 MCG TABLET PO SCH (06:30)
[2020-09-06] MEDS ORDERED: Multivit/Ca/Min/Fe/FA 1 TAB TABLET PO SCH (09:00)
[2020-09-06] MEDS ORDERED: Aspirin Enteric Coated 81 MG Tablet PO SCH (09:00)
[2020-09-06] MEDS ORDERED: Thiamine (B-1) 100 MG TABLET PO SCH (09:00)
[2020-09-06] MEDS ORDERED: Folic Acid 1 MG TABLET PO SCH (09:00)
[2020-09-07 22:29] LABS: Fluid Source for Albumin PERITONEAL FL.
== END 2020-09-05 20:19 | disposition left against medical advice (07) | DRG 872 ==
LOC: 2ANU 09:48 → EMEROOARM 09:48 → 2ANU 15:38 → SUATTDRO 16:36
PROVIDERS: ADMIT Internal Medicine; ATTEND Student in an Organized Health Care Education/Training Program